=== PATIENT | female | born 1930 | race Caucasian/White ===

== ENCOUNTER 2020-04-21 14:06 | Inpatient (IN) ==
[2020-04-21] MEDS ORDERED: MORPHINE SULFATE 2 MG/ML DISP.SYRIN IV ONE ×2 (14:22→16:29)
[2020-04-21] MEDS ORDERED: ONDANSETRON HCL/PF 2 MG/ML VIAL IV ONE (14:39)
[2020-04-21] MEDS ORDERED: ONDANSETRON HCL/PF 2 MG/ML VIAL ONE (14:40)
[2020-04-21 14:43] LABS: Hematocrit 26.2 % (37.0-47.0); Hemoglobin 8.7 gm/dL (12.5-16.0); Mean Cell Volume 106.5 fl (78-100); Mean Corpuscular Hemoglobin 35.4 pg (27-31); Mean Corpuscular Hgb Conc 33.2 g/dl (32-36); Mean Platelet Volume 9.5 fl (8-12.5); Neutrophil # 2.9 K/mm3 (1.3-6.0); Neutrophil % 67.3 % (42-75.0); Platelet Count 202 K/mm3 (150-450); Red Blood Count 2.46 M/mm3 (4.2-5.4); White Blood Count 4.3 K/mm3 (4.0-10.5)
[2020-04-21 15:00] LABS: Albumin * 3.5 gm/dl (3.4-5.0); Anion Gap 12.6 mmol/L (6.8-13.8); BUN/Creatinine Ratio 18.5 (9.0-21.6); Bilirubin, Total 0.7 mg/dL (0.0-1.1); Ca. Corrected For Albumin 8.7 mg/dL (8.4-10.2); Calcium * 8.6 mg/dL (7.9-10.9); Potassium 4.6 mmol/L (3.4-4.6); Total Protein 6.4 gm/dL (6.2-8.2)
[2020-04-21] MEDS ORDERED: NORMAL SALINE 1,000 ML IV ONE (16:12)
--- NOTE | 2020-04-21 16:22 | ERNOTE ---
Trauma/Assault HPI - Narrative Date of Service: 04/21/20 - General Stated Complaint: fall arm injury Time Seen by Provider: 04/21/20 14:19 Source: patient Exam Limitations: no limitations - Immun/Allergies/Home Medications Immunizations: IMMUNIZATION HX Immunizations Up to Date Yes History of Influenza Vaccine Yes Allergies/Adverse Reactions: Allergies No Known Allergies Allergy (Verified 04/21/20 17:44) - History of Present Illness Narrative: -89-year-old female presents today status post a fall with left wrist and hip pain. She notes she fell in her yard today she, she lives at home by herself. She notes she was brought in by the ambulance. She notes she did not hit her head and had no loss of consciousness. She rates her pain a 10/10. She notes the pain is worse with movement better with rest. She notes she has significant deformity of her wrist upon falling. She denies any use of any blood thinners. Patient is unaware of all of her other chronic medical conditions, she does note that she takes a "water pill". Patient otherwise notes no other acute concerns, no loss of consciousness, no syncope. She denies any other significant pains about her body. She notes she did not hit her head. Review of Systems - Review of Systems Constitutional: Absent: fever, chills EYE: Absent: blurred vision, double vision ENT: Absent: sore throat Respiratory: Absent: shortness of breath, cough Cardiology: Absent: syncope Gastrointestinal/Abdominal: Absent: nausea, vomiting, diarrhea, constipation, abdominal pain Genitourinary: Present: no symptoms reported Musculoskeletal: Present: joint pain Skin: Absent: rash, lesions Neurological: Absent: weakness, numbness, tingling Endocrine: Present: no symptoms reported Hematologic/Lymphatic: Present: no symptoms reported Psych: Present: no symptoms reported All Other Systems: All systems neg except as marked Medical History (Last Reviewed 04/21/20 @ 20:22 by HASMUKH Escamilla) Atrial fibrillation Breast cancer Colon cancer 2014- with resection and use of colostomy bag for 3 months. Surgical History: Surgical History (Last Reviewed 04/21/20 @ 20:22 by HASMUKH Escamilla) S/P triple vessel bypass (Chronic) 2006 following a [place] H/O total mastectomy of right breast Family History: Family History (Last Reviewed 04/21/20 @ 20:22 by HASMUKH Escamilla) Sister Cancer Throat cancer Brother Cancer Father Myocardial infarction Physical Exam - Physical Exam General Appearance: Present: wd/wn, alert, no apparent distress Head Exam: Present: normal inspection, no evidence of injury Eye Exam: Normal inspection: bilateral, PERRL: bilateral, EOMI: bilateral Ears, Nose, Throat: Present: normal ENT inspection Neck: Present: normal inspection, nontender Respiratory: Present: no respiratory distress, normal breath sounds, no accessory muscle use, chest nontender, lungs clear Cardiovascular/Chest: Present: regular rate, rhythm, no murmur, normal peripheral pulses Gastrointestinal/Abdominal: Present: normal bowel sounds, nontender, nondistended, soft Back Exam: Present: normal inspection, normal range of motion Extremity Exam: Present: other - LUE--> if again deformity of the distal radius, diffuse ecchymosis, decreased range of motion diffusely through her hand, sensation intact light touch, capillary refill brisk LLE--> diffuse tenderness to palpation about left hip, distal cap refill brisk, sensation intact light touch, mild shortening external rotation upon presentation, no obvious wounds Neurological Exam: Present: alert, oriented, normal mood/affect, no motor/sensory deficits Skin Exam: Present: normal color, warm/dry Detailed Trauma Exam Best Eye Response ([place]): (4) open spontaneously Best Verbal Response ([place]): (5) oriented Best Motor Response ([place]): (6) obeys commands [place] Total: 15 General Appearance: Present: alert Head Injury: Present: normal inspection, no tenderness on palpate Neurological Exam: Present: alert, oriented x 4, no motor/sensory deficits Neck Exam: Present: non-tender, full range of motion, normal alignment, normal inspection Eye Exam: Normal inspection: bilateral, PERRL: bilateral, EOMI: bilateral ENT Exam: Present: nml ext. inspection Chest/Respiratory Exam: Present: nml inspection, chest non-tender, breath sounds nml Cardiovascular Exam: Present: regular rate, rhythm, no murmur, normal peripheral pulses Abdominal Exam: Present: soft, non-tender, no distention, normal bowel sounds Skin Exam: Present: normal color, warm/dry Exam normal except for the findings below:: Yes - See previous exam - C-Spine cleared by: Neg history & exam Progress - Date and Time Seen: Date and Time: -9-year-old patient presents status post fall outside today. EMS brought the patient she had clear deformity of her left wrist that was splinted. She also had significant left hip pain. She reported no significant head trauma no loss of consciousness no syncope. Further work-up included x-rays that showed left displaced distal radius and ulna as well as left femoral neck fractures. Patient did not go under head CT as she is not on any blood thinners had no loss of conscious had no significant head trauma. She was alert and oriented otherwise. Discussed with patient treatment options including surgical fixation versus conservative measures including cast or nonweightbearing status. At this time she wishes to proceed with surgical intervention. Patient will be admitted with orthopedic surgery consulted. Discussed the case in detail with Dr. Pineda plan to surgically intervene on 04/22/2020 assuming clearance from medical team. Patient expressed understand this treatment plan and will be admitted for continued care and monitoring. - Results and Orders Patient's Lab Results:: I have reviewed the patient's lab results. Results and Orders: Laboratory Tests 04/21/20 04/21/20 14:30 14:30 WBC 4.3 Hgb 8.7 L MCV 106.5 H Creatinine 1.73 H Est GFR (Non-Af Amer) 29 L - Vital Signs Patient's Vital Signs:: I have reviewed the patient's vital signs. Vital Signs: Vital Signs 04/21/20 14:09 04/21/20 14:29 04/21/20 14:43 Temperature 36.2 C 36.2 C Pulse Rate 68 65 68 Respiratory Rate 20 20 Blood Pressure 147/66 165/68 H O2 Sat by Pulse Oximetry 95 97 - X-Ray X-Ray #1 X-Ray: chest Interpretation: Reviewed by me X-ray Comments: INDICATION: fall. COMPARISON STUDY: None. TECHNIQUE: Single PA view of the chest was obtained. FINDINGS: Low lung volumes. Exclusion of the right costophrenic angle from the [id number]. Vascular indistinctness. No consolidation. Cardiomegaly and tortuous thoracic aorta. Median sternotomy. No pleural effusion or pneumothorax. IMPRESSION: Vascular indistinctness may represent interstitial edema. No focal consolidation. Cardiomegaly. Electronically signed by Park Abdul D.O.. Park Abdul DO X-Ray #2 X-Ray: wrist Interpretation: Interp. by me X-ray Comments: Significantly displaced distal radius/ulna fracture, minimal comminution, no significant intra-articular involvement X-Ray #3 X-Ray: hip Interpretation: Interp. by me X-ray Comments: Displaced left femoral neck fracture - Progress/Reassessment Chief Complaint: Fall Progress:: Unchanged Progress Note-Subjective: 04/21/20 16:[address] Pineda from orthopedic surgery recommended admission to medicine for further care and preoperative clearance. Proceed with surgical intervention on 04/22/2020. Then called Dr. Rivero to discuss this case and further treatment he recommended admission she would see the patient this evening for further evaluation and H&P as well as preoperative evaluation. Patient will be admitted at this time with plan to proceed with surgical intervention if no significant complications on 04/22/2020. Plan - Plan Plan: Patient will be admitted with medicine team for further evaluation and possible preoperative clearance, if clearance is obtained will undergo orthopedic surgery on 04/22/2020 for her left distal radius/ulna and femoral neck fractures Departure Clinical Impression: Closed fracture distal radius and ulna Qualifiers: Encounter type: initial encounter Laterality: left Qualified Code(s): S52.502A - Unspecified fracture of the lower end of left radius, initial encounter for closed fracture Fracture of femoral neck, closed Qualifiers: Encounter type: initial encounter Laterality: left Qualified Code(s): S72.002A - Fracture of unspecified part of neck of left femur, initial encounter for closed fracture - Departure Disposition: Still a patient Condition: Stable Critical Care Time - Critical Care Critical Time Spent:: No
[2020-04-21 16:35] LABS: Urine Appearance Clear (CLEAR); Urine Bilirubin Negative (NEGATIVE); Urine Blood Negative /ul (NEGATIVE); Urine Color Yellow; Urine Ketone Negative (NEGATIVE); Urine Protein Negative (NEGATIVE)
[2020-04-21 16:36] LABS: Urine Bacteria None Seen; Urine Nitrite Negative (NEGATIVE); Urine RBC None Seen /hpf (0-5); Urine WBC None Seen /hpf (0-5)
[2020-04-21] MEDS ORDERED: MORPHINE SULFATE 2 MG/ML DISP.SYRIN IV PRN (18:32)
[2020-04-21] MEDS ORDERED: ACETAMINOPHEN 500 MG TABLET PO PRN (19:42)
[2020-04-21] MEDS ORDERED: ONDANSETRON HCL/PF 2 MG/ML VIAL IV PRN (19:45)
--- NOTE | 2020-04-21 20:17 | HP ---
Chief Complaint - Chief Complaint Date of Service: 04/21/20 Time of Service: 19:58 Chief Complaint: I have left hip and left wrist pain from a fall. History of Present Illness: 89-year-old female with past medical history of atrial fibrillation, CAD with three-vessel bypass, and chronic anemia was brought to our ER by EMS after patient sustained a fall that occurred in her home this afternoon. Patient reports while out in her backyard to plant some tomato plants she attempted to turn around to walk back to her house and felt numbness in her left hip which eventually gave out and caused her to fall onto her left side. Patient fell onto her left wrist and her left hip and felt a sudden intense pain. After that she reports being unable to get up from the ground and was there in her backyard for an unknown period of time. Patient started yelling for help but since she lives alone and her neighbors were away it was not until 2 strangers heard her yelling that she was able to get assistance. Patient reports that she is very independent and does all of her activities of daily living including cooking and cleaning. She reports being in her usual state of health before this occurred but admits to having chronic pain and weakness in her hips due to osteoarthritis. Patient was unattended during the admission process and was not very knowledgeable of her past medical history. She was however able to confirm a history of atrial fibrillation that is noted on preoperative EKG. Orthopedics was consulted and after evaluating the patient plans to take her to the OR for repair of her left hip fracture and left distal ulnar/radial fracture in the morning were made. Labs demonstrated hemoglobin of 8.7 which the patient reports is around her baseline, and according to her she regularly gets blood transfusions but she's not sure what causes her chronic anemia. Given the other findings on her labs it is likely that the patient has an anemia of chronic disease or a macrocytic anemia. We were unable to obtain a list of her medications due to the fact that she is not very knowledgeable what she takes and is unaccompanied. The pharmacy that supplies the patient's medications is closed until Wednesday due to the long holiday weekend and her doctor's office is also closed until Wednesday. Therefore we will place the patient on telemetry and continue to monitor her and treat her with analgesics to control her pain and make her as comfortable as possible. She is scheduled for OR in the morning. Medical History (Last Updated 04/21/20 @ 19:41 by Margie Mendez RN) Atrial fibrillation Breast cancer Colon cancer 2014- with resection and use of colostomy bag for 3 months. Surgical History: Surgical History (Last Reviewed 04/21/20 @ 17:42 by Bonnie Ibrahim RN) S/P triple vessel bypass (Acute) 2006 following a [place] H[place] maste[place] of right breast Family History: Family History (Last Updated 04/21/20 @ 17:44 by Bonnie Ibrahim RN) Sister Cancer Throat cancer Brother Cancer Father Myocardial infarction Peds Patient Hx - Developmental: No Pertinent Hx Peds Patient Hx - Medical: No Pertinent Hx Peds Patient Hx - Cardiac/Respiratory: No Pertinent Hx Peds Patient Hx - Surgical: No Surgical History Patient History - Cancer: No Hx of Cancer Review Of Systems (GEN) - Review of Systems Generalized/Overall Review: Present: No Symptoms Reported EENTM: Present: No Symptoms Reported Respiratory: Present: No Symptoms Reported Cardiac: Present: No Symptoms Reported Abdominal: Present: No Symptoms Reported Genitourinary: Present: No Symptoms Reported Musculoskeletal: Present: Joint Pain - Left hip and left wrist pain, Joint Swelling Neurological: Present: No Symptoms Reported Skin: Present: No Symptoms Reported Endocrine: Present: No Symptoms Reported Immunizations: IMMUNIZATION HX Immunizations Up to Date Yes History of Influenza Vaccine Yes Allergies/Adverse Reactions: Allergies Allergy/AdvReac Type Severity Reaction Status Date / Time No Known Allergies Allergy Verified 04/21/20 17:44 Exam - Exam Vital Signs: Vital Signs - Last Taken Temp 36.2 C 04/21/20 17:48 Pulse 91 04/21/20 17:48 Resp 20 04/21/20 17:48 BP 135/68 04/21/20 17:48 Pulse Ox 94 04/21/20 17:48 Constitutional: Present: Alert, Oriented x3, Cooperative, Well developed, Well nourished, No distress, Elderly ENT Exam: Present: normal ENT inspection, hearing grossly normal, pharynx normal, TMs normal Eye Exam: bilateral eye: normal inspection, PERRL, EOMI Neck: Present: non-tender, full range of motion, supple, normal inspection, trachea midline Back Exam: Present: normal inspection, no CVA tenderness, no vertebral tenderness Breasts: Present: Exam deferred Respiratory: Present: chest non-tender, lungs clear, normal breath sounds, no respiratory distress, no accessory muscle use Cardiovascular/Chest: Present: no chest tenderness, no edema, no gallop, no JVD, no murmur, no rub, irregularly irregular Peripheral Pulses: femoral (R): 3+, femoral (L): 3+, dorsalis-pedis (R): 2+, dorsalis-pedis (L): 2+ Abdomen: Present: Normal bowel sounds, soft, nontender, nondistended, no rebound tenderness, no hepatospenomegaly, no masses /Rectal: Present: Exam deferred Extremity: Present: no pedal edema, no calf tenderness, normal capillary refill, other - Externally rotated and shortened left lower extremity, left upper extremity wrapped in bandage. Skin Exam: Present: normal color, warm/dry, no cyanosis Lymphatic: Present: no adenopathy Neurologic: Present: pattern storage clerk II-XII nml as tested, no motor/sensory deficits, alert, normal mood/affect, oriented x 3 Appearance: Present: appropriate appearance, appropriate insight, neat, no memory impairment Eye contact: Present: cooperative, good eye contact, normal speech Thoughts: Present: normal thought pattern, no apparent hallucination Diagnostic Studies: Abnormal Lab Results 04/21/20 04/21/20 04/21/20 Range/Units 14:30 14:30 16:15 RBC 2.46 L (4.2-5.4) M/mm3 Hgb 8.7 L (12.5-16.0) gm/dL Hct 26.2 L (37.0-47.0) % MCV 106.5 H (78-100) fl MCH 35.4 H (27-31) pg RDW 15.0 H (11.5-14.0) % Immature Gran % (Auto) 0.50 H (0.001-0.429) % Lymphocytes % 19.5 L (20-51) % Monocytes % 10.1 H (0.0-9) % Lymphocytes # 0.83 L (1.5-3.5) k/mm3 BUN 32 H (3-23) mg/dL Creatinine 1.73 H (0.4-1.4) mg/dL Est GFR (Non-Af Amer) 29 L (60-130) mL/min Random Glucose 124 H (70-110) mg/dL ALT 13 L (19-67) U/L Urine Urobilinogen 2.0 H (NORMAL) EU/dl Laboratory Results WBC 4.3 K/mm3 (4.0-10.5) 04/21/20 14:30 RBC 2.46 M/mm3 (4.2-5.4) L 04/21/20 14:30 Hgb 8.7 gm/dL (12.5-16.0) L 04/21/20 14:30 Hct 26.2 % (37.0-47.0) L 04/21/20 14:30 MCV 106.5 fl (78-100) H 04/21/20 14:30 MCH 35.4 pg (27-31) H 04/21/20 14:30 MCHC 33.2 g/dl (32-36) 04/21/20 14:30 RDW 15.0 % (11.5-14.0) H 04/21/20 14:30 Plt Count 202 K/mm3 (150-450) 04/21/20 14:30 MPV 9.5 fl (8-12.5) 04/21/20 14:30 Immature Gran % (Auto) 0.50 % (0.001-0.429) H 04/21/20 14:30 Immature Gran # (Auto) 0.02 K/mm3 (0.000-0.0310) 04/21/20 14:30 Neutrophils % 67.3 % (42-75.0) 04/21/20 14:30 Lymphocytes % 19.5 % (20-51) L 04/21/20 14:30 Monocytes % 10.1 % (0.0-9) H 04/21/20 14:30 Eosinophils % 1.9 % (0.0-3.0) 04/21/20 14:30 Basophils % 0.7 % (0.0-1.0) 04/21/20 14:30 Nucleated RBC % 0.0 k/mm3 (0-1) 04/21/20 14:30 Neutrophils # 2.9 K/mm3 (1.3-6.0) 04/21/20 14:30 Lymphocytes # 0.83 k/mm3 (1.5-3.5) L 04/21/20 14:30 Monocytes # 0.4 k/mm3 (0.0-1.0) 04/21/20 14:30 Eosinophils # 0.1 k/mm3 (0.0-0.7) 04/21/20 14:30 Absolute Basophils 0.0 k/mm3 (0.0-0.1) 04/21/20 14:30 Sodium 134 mmol/L (132-142) 04/21/20 14:30 Plasma Sodium 134 mmol/L (130-142) 04/21/20 14:30 Potassium 4.6 mmol/L (3.4-4.6) 04/21/20 14:30 Chloride 101 mmol/L (97-106) 04/21/20 14:30 Carbon Dioxide 25.0 mmol/L (24-32.6) 04/21/20 14:30 Anion Gap 12.6 mmol/L (6.8-13.8) 04/21/20 14:30 BUN 32 mg/dL (3-23) H 04/21/20 14:30 Creatinine 1.73 mg/dL (0.4-1.4) H 04/21/20 14:30 Est GFR (Non-Af Amer) 29 mL/min (60-130) L 04/21/20 14:30 BUN/Creatinine Ratio 18.5 (9.0-21.6) 04/21/20 14:30 Random Glucose 124 mg/dL (70-110) H 04/21/20 14:30 Calcium 8.6 mg/dL (7.9-10.9) 04/21/20 14:30 Calcium Adj for Albumin 8.7 mg/dL (8.4-10.2) 04/21/20 14:30 Total Bilirubin 0.7 mg/dL (0.0-1.1) 04/21/20 14:30 AST 17 U/L (0-48) 04/21/20 14:30 ALT 13 U/L (19-67) L 04/21/20 14:30 Alkaline Phosphatase 62 U/L (50-170) 04/21/20 14:30 Total Protein 6.4 gm/dL (6.2-8.2) 04/21/20 14:30 Albumin 3.5 gm/dl (3.4-5.0) 04/21/20 14:30 Urine Color Yellow 04/21/20 16:15 Urine Appearance Clear (CLEAR) 04/21/20 16:15 Urine pH 7.0 pH (5.0-7.0) 04/21/20 16:15 Ur Specific [place] 1.020 SP.GR. (1.005-1.010) 04/21/20 16:15 Urine Protein Negative mg/dL (NEGATIVE) 04/21/20 16:15 Urine Glucose (UA) Negative mg/dL (NEGATIVE) 04/21/20 16:15 Urine Ketones Negative mg/dL (NEGATIVE) 04/21/20 16:15 Urine Blood Negative /ul (NEGATIVE) 04/21/20 16:15 Urine Nitrate Negative (NEGATIVE) 04/21/20 16:15 Urine Bilirubin Negative mg/dl (NEGATIVE) 04/21/20 16:15 Urine Urobilinogen 2.0 EU/dl (NORMAL) H 04/21/20 16:15 Ur Leukocyte Esterase Negative /ul (NEGATIVE) 04/21/20 16:15 Urine RBC None seen /hpf (0-5) 04/21/20 16:15 Urine WBC None seen /hpf (0-5) 04/21/20 16:15 Ur Epithelial Cells 0-5 /hpf (0-5) 04/21/20 16:15 Urine Bacteria None seen (NONE) 04/21/20 16:15 Urine Culture Comments No culture indicated 04/21/20 16:15 Blood Type A Positive 04/21/20 14:30 Antibody Screen Negative 04/21/20 14:30 Assessment/Plan - Narrative Narrative: Patient was evaluated and medical chart was reviewed and decision to admit for a diagnosis of left femoral neck fracture and left distal ulnar/radial fracture was made. She is scheduled for the OR tomorrow morning for repair of her fractures by the orthopedic surgeon. In the meantime we will continue to control her pain and any other associated symptoms. She maintained stable vitals at the moment and besides mild nausea due to the opioids she denies any other symptoms. Efforts will be made to contact the patient's family members in order to secure a list of her routine medications. - Assessment/Plan (1) Fracture of femoral neck, left Problem: Acute (2) Closed fracture distal radius and ulna Problem: Acute Qualifiers: Encounter type: initial encounter Laterality: left Qualified Code(s): S52.502A - Unspecified fracture of the lower end of left radius, initial encounter for closed fracture; S52.602A - Unspecified fracture of lower end of left ulna, initial encounter for closed fracture (3) S/P triple vessel bypass Problem: Chronic (4) Chronic anemia Problem: Chronic (5) Macrocytic anemia Problem: Chronic (6) Atrial fibrillation Problem: Chronic
[2020-04-21] MEDS ORDERED: MORPHINE SULFATE 2 MG/ML DISP.SYRIN IV STA (20:19)
[2020-04-21 20:38] LABS: Prothrombin Time (Patient) 12.2 Seconds (9.1-10.7)
[2020-04-21] MEDS: PANTOPRAZOLE SODIUM 40 MG in NORMAL SALINE 100 ML IV SCH (20:43)
[2020-04-21 20:44] LABS: INR 1.24 INR (0.92-1.08); Partial Thrombolplastin Time 29.2 Seconds (24-32)
[2020-04-21] MEDS: MORPHINE SULFATE 4 MG/ML SYRG IV PRN (21:34)
--- NOTE | 2020-04-21 22:06 | CONS ---
- Reason for consultation (1) Closed fracture distal radius and ulna Date of Service: 04/21/20 (2) Fracture of femoral neck, left Date of Service: 04/21/20 HPI - General Date of Service: 04/21/20 Narrative: 89-year-old female presented to the ER today status post a fall outside. She was brought to the ER by ambulance with significant left wrist and hip pain. She noted her pain as constant about those 2 joints, she noted no loss of consciousness, no significant head injury, no significant traumas outside this. She notes no other previous surgeries on these regions. Patient is a poor histo baudilio and other further medical history is difficult to obtain, appears to have previous cancer history and possible resections of her colon and breast. She also had significant cardiac history with a triple bypass at one point. Patient notes she is not on any significant blood thinners that she is aware of. Patient notes her pain is worse with movement better with rest. She is otherwise alert and oriented. Source: patient Exam Limitations: no limitations - History of Present Illness Allergies/Adverse Reactions: Allergies No Known Allergies Allergy (Verified 04/21/20 17:44) Medications - Medications Current Medications: Current Medications Sodium Chloride (Sodium Chloride 0.9%) 1,000 mls @ 100 mls/hr IV .Q10H ONE Stop: 04/22/20 02:11 Last Admin: 04/21/20 16:24 Dose: 100 mls/hr Documented by: Pantoprazole Sodium 40 mg/ (Sodium Chloride) 100 mls @ 400 mls/hr IV Q24H JOSTIN Stop: 05/21/20 19:46 Last Infusion: 04/21/20 20:58 Dose: Infused Documented by: Morphine Sulfate (Morphine Sulfate) 3 mg IV Q2H PRN PRN Reason: Severe Pain (pain scale 7-10) Stop: 05/21/20 20:23 Last Admin: 04/21/20 21:34 Dose: 3 mg Documented by: Physical Examination - Exam Vital Signs: Vital Signs - Last Taken Temp 36.4 C 04/21/20 20:18 Pulse 90 04/21/20 20:18 Resp 18 04/21/20 20:18 BP 143/71 04/21/20 20:18 Pulse Ox 93 04/21/20 20:18 O2 Oxygen Delivery Method Room Air Constitutional: Present: Alert, Cooperative, Mild distress Respiratory: Present: no respiratory distress - LUE--> sensation intact light touch, significant deformity, diffuse ecchymosis, no obvious wounds, tenderness to palpation about distal radius and ulna LLE--> sensation intact light touch, mild deformity with shortening and external rotation, distal capillary refill brisk, no obvious wounds, significant diffuse tenderness of hip Appearance: Present: appropriate appearance Eye contact: Present: cooperative Thoughts: Present: normal thought pattern - Results and Findings: Lab/Microbiology results last 24 hrs: Abnormal/Pending Laboratory Last 24 HRS 04/21/20 04/21/20 04/21/20 16:15 14:30 14:30 RBC Hgb Hct MCV MCH RDW Immature Gran % (Auto) Lymphocytes % Monocytes % Lymphocytes # PT 12.2 H INR (Anticoag Therapy) 1.24 H BUN 32 H Creatinine 1.73 H Est GFR (Non-Af Amer) 29 L Random Glucose 124 H ALT 13 L Urine Urobilinogen 2.0 H 04/21/20 14:30 RBC 2.46 L Hgb 8.7 L Hct 26.2 L MCV 106.5 H MCH 35.4 H RDW 15.0 H Immature Gran % (Auto) 0.50 H Lymphocytes % 19.5 L Monocytes % 10.1 H Lymphocytes # 0.83 L PT INR (Anticoag Therapy) BUN Creatinine Est GFR (Non-Af Amer) Random Glucose ALT Urine Urobilinogen - Assessments/Findings (1) Closed fracture distal radius and ulna Problem: Acute Qualifiers: Encounter type: initial encounter Laterality: left Qualified Code(s): S52.502A - Unspecified fracture of the lower end of left radius, initial encounter for closed fracture; S52.602A - Unspecified fracture of lower end of left ulna, initial encounter for closed fracture (2) Fracture of femoral neck, left Problem: Acute Plan - Plan Plan: -89 y/o female status post fall with a left distal radius/ulna fracture and left femoral neck fracture. Dr. Fletcher recommends further treatment with surgical intervention for left wrist and femur fractures. If patient is medically stable recommend proceeding with surgical intervention on 04/22/2020. Patient wishes to proceed with the surgical options, consent was obtained and all questions were answered. Discussed risk versus benefits of both surgeries including infection, bleeding, continued pain, malunion versus nonunion fracture anteriorly, hardware failure, anesthesia risk, cardiac and stroke risk, inherent risk of surgery. Patient expressed understanding and still wishes to proceed with surgical intervention. She will be evaluated by the medical team for clearance prior to proceeding with surgery. We will follow-up with patient tomorrow preoperatively.
[2020-04-22] MEDS: MORPHINE SULFATE 4 MG/ML SYRG IV PRN ×3 (00:59→06:53)
[2020-04-22] MEDS: NORMAL SALINE 1,000 ML IV ONE ×2 (02:43→09:30)
[2020-04-22] MEDS ORDERED: ROPIVACAINE HCL/PF 100 MG, EPINEPHrine 0.2 MG, KETOROLAC TROMETHAMINE 30 MG in NORMAL S... IJ PRN (06:00)
[2020-04-22] MEDS ORDERED: ceFAZolin SODIUM 1 GM VIAL IV PRN (06:00)
[2020-04-22] MEDS ORDERED: TRANEXAMIC ACID 1,000 MG in NORMAL SALINE 100 ML IV PRN (06:00)
[2020-04-22] MEDS ORDERED: VANCOMYCIN HCL 1 GM VIAL ONE (06:27)
--- NOTE | 2020-04-22 08:54 | PN ---
Subjective - Date and Time Seen Date: 04/22/20 Time: 08:51 Subjective Narrative: Patient reports no acute events, she does note she had mild to moderate pain throughout the night worse movement better with rest. She otherwise had an uneventful night. States she is ready to proceed with surgery today. Objective - Vitals Vitals: Last Vital Signs Temp 36.8 C 04/22/20 07:00 Pulse 79 04/22/20 07:00 Resp 20 04/22/20 07:00 BP 120/54 04/22/20 07:00 Pulse Ox 98 04/22/20 07:00 - Abnormal Lab Findings Abnormal Lab Findings: Abnormal Lab Results 04/21/20 04/21/20 04/21/20 Range/Units 14:30 14:30 14:30 RBC 2.46 L (4.2-5.4) M/mm3 Hgb 8.7 L (12.5-16.0) gm/dL Hct 26.2 L (37.0-47.0) % MCV 106.5 H (78-100) fl MCH 35.4 H (27-31) pg RDW 15.0 H (11.5-14.0) % Immature Gran % (Auto) 0.50 H (0.001-0.429) % Lymphocytes % 19.5 L (20-51) % Monocytes % 10.1 H (0.0-9) % Lymphocytes # 0.83 L (1.5-3.5) k/mm3 PT 12.2 H (9.1-10.7) Seconds INR (Anticoag Therapy) 1.24 H (0.92-1.08) INR BUN 32 H (3-23) mg/dL Creatinine 1.73 H (0.4-1.4) mg/dL Est GFR (Non-Af Amer) 29 L (60-130) mL/min Random Glucose 124 H (70-110) mg/dL ALT 13 L (19-67) U/L Urine Urobilinogen (NORMAL) EU/dl 04/21/20 Range/Units 16:15 RBC (4.2-5.4) M/mm3 Hgb (12.5-16.0) gm/dL Hct (37.0-47.0) % MCV (78-100) fl MCH (27-31) pg RDW (11.5-14.0) % Immature Gran % (Auto) (0.001-0.429) % Lymphocytes % (20-51) % Monocytes % (0.0-9) % Lymphocytes # (1.5-3.5) k/mm3 PT (9.1-10.7) Seconds INR (Anticoag Therapy) (0.92-1.08) INR BUN (3-23) mg/dL Creatinine (0.4-1.4) mg/dL Est GFR (Non-Af Amer) (60-130) mL/min Random Glucose (70-110) mg/dL ALT (19-67) U/L Urine Urobilinogen 2.0 H (NORMAL) EU/dl - Exam Constitutional: Present: Alert, Cooperative, No distress Respiratory: Present: no respiratory distress Extremity: Present: other - LUE--> sensation intact light touch, sugar tong splint in place, 4+/5 compensation and hris analyst strength, this capillary fill brisk LLE--> diffuse tenderness to hip, no obvious wounds, mild external rotation and shortening, sensation tact light touch, distal capillary refill but Skin Exam: Present: normal color Appearance: Present: appropriate appearance Eye contact: Present: cooperative Thoughts: Present: normal thought pattern Cauti Physician Documentation - Urinary Catheter Management Urethral (S[place]ruz) Date of Insertion: 04/21/20 Time of Insertion: 16:30 Assessment/Plan Plan Narrative: -Patient was marked and signed, preoperative evaluation completed. Patient will proceed with surgical intervention on 04/22/2020 for her left wrist and hip. Patient will be followed postoperatively in the hospital and will continue with further care. - Problems/Diagnosis (1) Closed fracture distal radius and ulna Problem: Acute Qualifiers: Encounter type: initial encounter Laterality: left Qualified Code(s): S52.502A - Unspecified fracture of the lower end of left radius, initial encounter for closed fracture; S52.602A - Unspecified fracture of lower end of left ulna, initial encounter for closed fracture (2) Fracture of femoral neck, left Problem: Acute
[2020-04-22] MEDS ORDERED: ONDANSETRON HCL/PF 2 MG/ML VIAL ONE (09:09)
[2020-04-22] MEDS ORDERED: fentaNYL CITRATE/PF 50 MCG/ML AMPUL ONE (09:09)
[2020-04-22] MEDS ORDERED: ROCURONIUM BROMIDE 10 MG/ML VIAL ONE (09:09)
[2020-04-22] MEDS ORDERED: LIDOCAINE HCL 20 ML VIAL ONE (09:09)
[2020-04-22] MEDS ORDERED: PROPOFOL VIAL IV ONE (09:09)
[2020-04-22] MEDS ORDERED: SUCCINYLCHOLINE CHLORIDE 20 MG/ML VIAL ONE (09:10)
[2020-04-22] MEDS ORDERED: VANCOMYCIN HCL 1 GM VIAL TP ONE (09:30)
[2020-04-22] MEDS ORDERED: BUPIVACAINE HCL/EPINEPHRINE/PF 30 ML VIAL IJ ONE (09:35)
[2020-04-22] MEDS ORDERED: BUPIVACAINE HCL 50 ML VIAL IJ ONE ×2 (09:35→11:35)
[2020-04-22] MEDS ORDERED: diphenhydrAMINE HCL 50 MG/ML VIAL IV PRN (12:25)
[2020-04-22] MEDS ORDERED: MORPHINE SULFATE 2 MG/ML DISP.SYRIN IV PRN (12:25)
[2020-04-22] MEDS ORDERED: NORMAL SALINE 1,000 ML IV PRN (12:25)
[2020-04-22] MEDS ORDERED: HYDROcodone/ACETAMINOPHEN 1 EACH TABLET PO PRN (12:25)
[2020-04-22] MEDS ORDERED: MAG HYDROX/ALUMINUM HYD/SIMETH 30 ML UDC PO PRN (12:25)
--- NOTE | 2020-04-22 12:41 | PN ---
Subjective - Date and Time Seen Date: 04/22/20 Time: 12:35 Subjective Narrative: I have left hip pain Objective Objective Narrative: 89-year-old female admitted for left femoral neck and left wrist fractures was taken taken to the OR by Dr. Awad for repair of her left femoral neck fracture. There were no adverse events besides pain from the fractures reported by nursing staff, the patient maintained adequate vitals throughout the night. We will follow-up with her after the procedure. - Review of Systems Generalized/Overall Review: Reports: No Symptoms Reported EENTM: Reports: No Symptoms Reported Respiratory: Reports: No Symptoms Reported Cardiac: Reports: No Symptoms Reported Abdominal: Reports: No Symptoms Reported Genitourinary Symptoms: Reports: No Symptoms Reported Musculoskeletal Complaints: Reports: Joint Pain - Left hip and left wrist pain, Joint Swelling Neurological: Reports: No Symptoms Reported Skin: Reports: No Symptoms Reported Endocrine: Reports: No Symptoms Reported - Vitals Vitals: Last Vital Signs Temp 36.8 C 04/22/20 07:00 Pulse 79 04/22/20 07:00 Resp 20 04/22/20 07:00 BP 120/54 04/22/20 07:00 Pulse Ox 98 04/22/20 07:00 - Abnormal Lab Findings Abnormal Lab Findings: Abnormal Lab Results 04/21/20 04/21/20 04/21/20 Range/Units 14:30 14:30 14:30 RBC 2.46 L (4.2-5.4) M/mm3 Hgb 8.7 L (12.5-16.0) gm/dL Hct 26.2 L (37.0-47.0) % MCV 106.5 H (78-100) fl MCH 35.4 H (27-31) pg RDW 15.0 H (11.5-14.0) % Immature Gran % (Auto) 0.50 H (0.001-0.429) % Lymphocytes % 19.5 L (20-51) % Monocytes % 10.1 H (0.0-9) % Lymphocytes # 0.83 L (1.5-3.5) k/mm3 PT 12.2 H (9.1-10.7) Seconds INR (Anticoag Therapy) 1.24 H (0.92-1.08) INR BUN 32 H (3-23) mg/dL Creatinine 1.73 H (0.4-1.4) mg/dL Est GFR (Non-Af Amer) 29 L (60-130) mL/min Random Glucose 124 H (70-110) mg/dL ALT 13 L (19-67) U/L Urine Urobilinogen (NORMAL) EU/dl 04/21/20 Range/Units 16:15 RBC (4.2-5.4) M/mm3 Hgb (12.5-16.0) gm/dL Hct (37.0-47.0) % MCV (78-100) fl MCH (27-31) pg RDW (11.5-14.0) % Immature Gran % (Auto) (0.001-0.429) % Lymphocytes % (20-51) % Monocytes % (0.0-9) % Lymphocytes # (1.5-3.5) k/mm3 PT (9.1-10.7) Seconds INR (Anticoag Therapy) (0.92-1.08) INR BUN (3-23) mg/dL Creatinine (0.4-1.4) mg/dL Est GFR (Non-Af Amer) (60-130) mL/min Random Glucose (70-110) mg/dL ALT (19-67) U/L Urine Urobilinogen 2.0 H (NORMAL) EU/dl - Exam Exam Narrative: Patient is currently in the OR undergoing repair of her left femoral neck fracture, she was not present for physical exam during rounds this morning. Cauti Physician Documentation - Urinary Catheter Management Urethral ([place]ruz) Date of Insertion: 04/21/20 Time of Insertion: 16:30 Assessment/Plan - Problems/Diagnosis (1) Fracture of femoral neck, left Problem: Acute (2) Closed fracture distal radius and ulna Problem: Acute Qualifiers: Encounter type: initial encounter Laterality: left Qualified Code(s): S52.502A - Unspecified fracture of the lower end of left radius, initial encounter for closed fracture; S52.602A - Unspecified fracture of lower end of left ulna, initial encounter for closed fracture (3) S/P triple vessel bypass Problem: Chronic (4) Chronic anemia Problem: Chronic (5) Macrocytic anemia Problem: Chronic (6) Atrial fibrillation Problem: Chronic
--- NOTE | 2020-04-22 12:42 | OR ---
Operative Report - Dictated Report Narrative: Date: 04/22/2020 Preoperative diagnosis: Displaced left femoral neck fracture, displaced left extra-articular distal radius fracture Postoperative diagnosis: Displaced left femoral neck fracture, displaced left extra-articular distal radius fracture Procedure: 1. Left hip cemented hemiarthroplasty 2. Open reduction internal fixation of left extra-articular distal radius fracture, 2 fragments. 3. Intraoperative interpretation of x-rays. Surgeon: Krish Pineda M.D. Typing Pool Supervisor: Esequiel Kruse PA-C provided a set of essential, skilled, educated hands that assisted in positioning, transfer, retraction, manipulation, irrigation, closure of wounds, and placement of dressings all of which could not be provided by the available surgical crew. Anesthesia: General plus local Complications: None Specimens: Femoral head Estimated blood loss: 250 Retained implants: Depuy Corail size 12 standard uncemented femoral stem. Size 47 millimeter ouside diameter self-centering bipolar head with + 1.5 millimeter cobalt chromium 28 mm femoral head, [employer] 2.0 mm left standard distal radial locking plate with associated screws Indications: Kennedy is a 89-year-old female who lives independently and fell from standing height at home. She was evaluated in the emergency department where work-up revealed a displaced left femoral neck fracture as well as a displaced left extra-articular distal radius fracture. She was admitted to the family medicine service and orthopedics was consulted for management of her injuries. She was otherwise medically stable at the time of admission. The risks and benefits were discussed with the patient as well as any power of patent prosecution attorney. Patient wished to proceed with surgical treatment. The risks, benefits, and alternatives discussed were , blood clots, bleeding, infection, nerve/tendon blood vessel/ injury, malposition of components, dislocation and/or instability of joint, intraoperative fracture, postoperative limited range of motion, persistent pain, failure of components, need for additional procedures, malunion/nonunion of the wrist, wrist stiffness, postoperative arthrosis, delayed tendon rupture of the flexor pollicis longus, and risks with anesthesia. Patient wished to proceed. Consent was obtained after answering all questions. Procedure: After marking the correct extremity on the floor, the patient was taken to the operating room. A timeout was performed. IV antibiotics consisting of 1 g of Ancef were administered prior to the procedure. A general anesthetic was induced by anesthesia. The patient was then transitioned to a lateral position on a well-padded pegboard. And an axillary roll was placed. The head was in neutral position. The non-operative down leg was well-padded with SCD and MERRICK hose in place. The arms were supported and padded to protect from any undue pressure on the bony prominences and nerves. Well-padded anterior and posterior pelvic and chest posts were secured in order to maintain a stable position of the pelvis. This was placed so that the pelvis was perpe ndicular to the floor. The body was in line with the pelvis. Once it was felt that we had protected all the bony prominences and the patient was well secured with a safety belt as well, the leg was pre-scrubbed with alcohol, prepped and draped in a standard sterile fashion. A standard anterior lateral hip incision was marked out over the greater trochanter. Ioban drapes were then placed. The skin incision was then made. Sharp dissection with a scalpel utilizing cautery for hemostasis was carried out down to the gluteus and iliotibial band fascia. This was split in line with the skin incision. The greater trochanter bursa was excised. The anterior and posterior margins of the abductor tendon were identified. The anterior 1/3 of the tendon was tagged and reflected off the greater trochanter leaving a sleeve of tendon for repair at the completion of the case. This exposed the underlying hip joint capsule. An inverted T-type capsulotomy was made extending this up to the brim of the acetabulum. We encountered a hematoma at this point confirming an acute fracture as well as noted displacement of the femoral neck fracture. Using Juana retractors to assist with elevation of the soft tissues off the anterior, superior, and inferior aspects of the femoral neck, the hip was then placed in a figure 4 position and the femoral neck cleanup cut was then made. With the leg in an externally rotated and adducted position, the cutting flag was utilized in order to bud for a low femoral neck cut approximately 5 to 7 mm above the level of the lesser trochanter. This was done while protecting the surrounding soft tissues with Juana retractors. The femoral head was then removed and sized for guidance on the size of the bipolar head. It was noted that there was no significant loss of articular cartilage on both the femoral head and weightbearing portions of the acetabulum. We then returned the leg to the table and turned our attention to the acetabulum. While protecting the surrounding soft tissues, the labrum and remaining tissue in the fovea were excised using a scalpel and cautery. This was then protected with a sponge while we returned our attention to the femur. With the leg in a figure 4 position utilizing Juana retractors for soft tissue protection, a box cutting osteotome, followed by Charnley awl, followed by serial broaches were utilized in order to prepare the femur. It was found that a size 12 broach gave good axial and rotational stability. The proximal femur was visualized to ensure that there were no signs of fracture. The trial implant was removed. The stem was then placed in the appropriate version compared to her lower elwha anatomy and impacted into place. The stem was stable and there were no signs of fracture. A series of heads were trialed. It was found that a +1.5 mm femoral head gave good overall stability. There was minimal longitudinal instability. With the leg in the position of sleep the femoral head was well covered. Hip range of motion was able to reach full extension and external rotation to greater than 75 degrees prior to impingement along the posterior acetabulum. The hip was able to be flexed to greater than 90 degrees with internal rotation greater than 60 degrees prior to anterior impingement. The limb lengths were near equal based on comparison to the contralateral side. Hip was then dislocated and the trial head was removed. The final femoral bipolar head was then impacted in the place. The hip was then reduced and seated completely. The joint was then copiously irrigated with normal saline. The capsule was repaired with interrupted #1 Vicryl. A periarticular joint injection was then placed in the hip joint capsule as well as the abductor musculature and subcutaneous tissue. The abductor tendon was repaired to the greater trochanter utilizing #5 Ethibond through bone tunnels. This was oversewn with #1 Vicryl. The fascia was closed with running barbed #1 PDS suture. The wounds were thoroughly irrigated as we closed in layers. The deep fat layers were closed with running barbed 0 PDS and the dermis was approximated with interrupted 3-0 Vicryl. The skin was closed with jaun. All sponge, needle, blade, and instrument counts were correct prior to closing the wounds. Sterile dressings consisting of Xeroform, 4 x 4's, ABD, and tape were applied. At this point, we turned our attention to fixing the patient's distal radius. All hip drapes were taken down and the patient was transferred to a supine position on the operating table with all bony prominences well-padded. An armboard was attached to the left side of the bed. The patient's splint was removed and her wrist and hand were pre-scrubbed with chlorhexidine. A well- padded nonsterile tourniquet was placed around the operative upper arm. The left upper extremity was then prepped and draped in usual sterile fashion. After exsanguinating the extremity and inflating the tourniquet to 225 mmHg, a longitudinal incision was made over the flexor carpi radialis. This was sharply dissected down through the skin to the tendon sheath. This was incised in line with the tendon. The tendon was mobilized radially and the deep fascia was incised. The flexor pollicis longus was mobilized ulnarly exposing the pronator quadratus. Pronator quadratus was elevated off the radial aspect of the distal radius exposing the fracture. The fracture was noted to be oblique running from the distal radial aspect of the distal radial metaphysis down to the proximal ulnar border of the distal radial metaphysis. There was no comminution volarly and only mild comminution dorsally on C arm. Using mini C-arm, the fracture was reduced and preliminarily pinned in the place through the radial styloid. Once it was felt that we adequately preliminarily stabilized the fracture, the plate was pinned in the place. This was visualized on AP and lateral views to be centered over the distal radius as well as not excessively distal. Once it was felt that the plate was in the correct position a series of distal locking and proximal non-locking screws were placed. Mini C-arm was utilized in order to confirm the length and placement of the screws. Once the wrist was stabilized, final images were obtained to ensure that the screws were not prominent dorsally nor into the joint space. The distal radial ulnar joint was then stressed in supination and pronation and neutral, and it was noted to be stable. It was felt that the fracture was adequately stabilized and the wounds were then thoroughly irrigated. The pronator quadratus was repaired over the plate using 4-0 Vicryl. The wounds were again thoroughly irrigated and tourniquet was deflated. Hemostasis was obtained and there was no excessive bleeding. Subcutaneous tissue was closed with 4-0 Vicryl and the skin with 4-0 nylon. Sterile dressings consisting of Xeroform, 4 x 4, soft roll, and a well-padded dorsal plaster short arm splint was applied. All sponge, sharp, and instrument counts were correct prior to closing the wounds. The patient was awoken and recovered in the operating room due to COVID restrictions. Postoperative condition: The plan is to return to the medical/surgical inpatient floor postoperatively. Postoperatively 24 hours of IV antibiotics, pain control, physical therapy, occupational therapy, and medical comanagement will be utilized. Patient will be weightbearing as tolerated with anterior hip precautions. Postoperative films will be obtained in the recovery room.
[2020-04-22] MEDS: POLYVINYL ALCOHOL 150 DROP BTL LEFTEYE PRN ×3 (15:01→19:27)
--- NOTE | 2020-04-22 15:33 | ANES ---
Anesthesia Pre Procedure Eval Vitals/Labs: Last Vital Signs Temp 35.8 C L 04/22/20 14:13 Pulse 78 04/22/20 14:58 Resp 16 04/22/20 14:58 BP 149/68 04/22/20 14:58 Pulse Ox 99 04/22/20 14:58 HOME MEDICATIONS Amiodarone HCl 200 mg PO DAILY 04/22/20 [Last Taken Unknown] Anastrozole [Arimidex] 1 mg PO DAILY 04/22/20 [Last Taken Unknown] Carvedilol [Coreg] 12.5 mg PO BID 04/22/20 [Last Taken Unknown] Folic Acid 2 mg PO DAILY 04/22/20 [Last Taken Unknown] Furosemide [Lasix] 80 mg PO BID PRN 04/22/20 [Last Taken Unknown] Potassium Chloride [K-Tab ER] 10 meq PO DAILY 04/22/20 [Last Taken Unknown] Allergies/Adverse Reactions: Allergies Allergy/AdvReac Type Severity Reaction Status Date / Time No Known Allergies Allergy Verified 04/21/20 17:44 - Planned Procedure Planned Procedure: left distal radius/ulna fx left femoral neck fx Medication List Reviewed:: Yes Allergies Verified: Yes Medical History (Last Reviewed 04/22/20 @ 15:32 by Darío Clemons CRNA) Atrial fibrillation Breast cancer Colon cancer 2014- with resection and use of colostomy bag for 3 months. Surgical History (Last Reviewed 04/22/20 @ 15:32 by Darío Clemons CRNA) S/P triple vessel bypass (Chronic) [address] H/O total mastectomy of right breast Family History (Last Reviewed 04/22/20 @ 15:32 by Darío Clemons CRNA) Sister Cancer Throat cancer Brother Cancer Father Myocardial infarction - Family Anesthesia History Family History:: no untoward family reactions to anesthesia - Airway/Neck/Teeth Teeth Condition: poor condition Denture Type: Full lower Neck Exam: full range of motion Mallampatti Score: 2 Thyromental (T-M) distance: > 6 cm Mandibulo Hyoid distance: > 3 cm - Respiratory Respiratory Physical: lungs clear Smoking Status: Never smoker Sleep Apnea currently treated: No Sleep Apnea by current assessment: No - Cardiovascular Cardiac History: CAD, hypertension Tolerate Activity: Poor Heart Sounds: S1 & S2, Regular, Murmur - Gastrointestinal NPO since: MN - Anesthesia Assessment and Plan ASA Class: PS, III Anesthesia Type Plan: General ET Planned difficult intubation/equipment available: No
--- NOTE | 2020-04-22 15:34 | ANES ---
Post Anesthesia Discharge - Transfer of Care Transfer of Care handoff given to nurse: Yes - Discharge from PACU Discharge from PACU when meets criteria: Yes
--- NOTE | 2020-04-22 15:34 | ANES ---
Post Anesthesia Assessment - Vital Signs Vitals: Last Vital Signs Temp 35.8 C L 04/22/20 14:13 Pulse 78 04/22/20 14:58 Resp 16 04/22/20 14:58 BP 149/68 04/22/20 14:58 Pulse Ox 99 04/22/20 14:58 Airway Patency: Normal - Mental Status Level Of Consciousness: Awake - Pain Level Pain Score: 3 - N/V Assessment Nausea/Vomiting Presence: None Dehydration:: No
[2020-04-22] MEDS: ceFAZolin SODIUM 1 GM in DEXTROSE 5 % IN WATER 100 ML IV SCH ×2 (17:05)
[2020-04-22] MEDS: HYDROcodone/ACETAMINOPHEN 1 EACH TABLET PO PRN (17:40)
[2020-04-22] MEDS: PANTOPRAZOLE SODIUM 40 MG in NORMAL SALINE 100 ML IV SCH (19:26)
[2020-04-22] MEDS: SENNOSIDES/DOCUSATE SODIUM 1 TAB TABLET PO SCH (20:40)
[2020-04-23] MEDS: ceFAZolin SODIUM 1 GM in DEXTROSE 5 % IN WATER 100 ML IV SCH ×4 (01:55→10:35)
[2020-04-23] MEDS: HYDROcodone/ACETAMINOPHEN 1 EACH TABLET PO PRN ×2 (04:53→12:54)
[2020-04-23 06:42] LABS: Anion Gap 11.4 mmol/L (6.8-13.8); BUN/Creatinine Ratio 16.1 (9.0-21.6); Calcium * 7.6 mg/dL (7.9-10.9); Carbon Dioxide 23.3 mmol/L (24-32.6); Potassium 4.7 mmol/L (3.4-4.6)
[2020-04-23 06:45] LABS: Mean Cell Volume 110.7 fl (78-100); Mean Corpuscular Hemoglobin 36.1 pg (27-31); Mean Corpuscular Hgb Conc 32.6 g/dl (32-36); Mean Platelet Volume 10.1 fl (8-12.5); Platelet Count 152 K/mm3 (150-450); Red Blood Count 2.05 M/mm3 (4.2-5.4); Red Cell Distribution Width 15.4 % (11.5-14.0); White Blood Count 5.8 K/mm3 (4.0-10.5)
[2020-04-23 07:04] LABS: Hematocrit 22.7 % (37.0-47.0); Hemoglobin 7.4 gm/dL (12.5-16.0)
--- NOTE | 2020-04-23 08:50 | PN ---
Subjective - Date and Time Seen Date: 04/23/20 Time: 08:39 Subjective Narrative: I feel comfortable, no pain with the meds. Objective Objective Narrative: 89-year-old female status post repair of left femoral neck fracture and left supracondylar fracture resulted from a fall in her home was evaluated at bedside was found to be afebrile in no acute distress. Patient tolerated the procedure to repair her fractures without any issues, currently she reports feeling comfortable and denies having any pain. She is in agreement that once discharge she will go to rehab facility for proper rehabilitation while she heals. This morning's lab demonstrates a drop in hemoglobin most likely secondary to her surgery will continue to watch this daily. During the postop period, the patient also had an episode of fever for which she administered acetaminophen. We will also monitor this. For now she maintained stable vitals and appears to be comfortable. - Review of Systems Generalized/Overall Review: Reports: Fever EENTM: Reports: No Symptoms Reported Respiratory: Reports: No Symptoms Reported Cardiac: Reports: No Symptoms Reported Abdominal: Reports: No Symptoms Reported Genitourinary Symptoms: Reports: No Symptoms Reported Musculoskeletal Complaints: Reports: Other - Mild left wrist discomfort Neurological: Reports: No Symptoms Reported Skin: Reports: No Symptoms Reported Endocrine: Reports: No Symptoms Reported - Vitals Vitals: Last Vital Signs Temp 37.8 C 04/23/20 08:17 Pulse 106 H 04/23/20 06:17 Resp 16 04/23/20 06:17 BP 118/65 04/23/20 06:17 Pulse Ox 94 04/23/20 06:17 - Abnormal Lab Findings Abnormal Lab Findings: Abnormal Lab Results 04/23/20 04/23/20 Range/Units 06:30 06:30 RBC 2.05 L (4.2-5.4) M/mm3 Hgb 7.4 L* (12.5-16.0) gm/dL Hct 22.7 L* (37.0-47.0) % MCV 110.7 H (78-100) fl MCH 36.1 H (27-31) pg RDW 15.4 H (11.5-14.0) % Potassium 4.7 H (3.4-4.6) mmol/L Carbon Dioxide 23.3 L (24-32.6) mmol/L BUN 25 H (3-23) mg/dL Creatinine 1.55 H (0.4-1.4) mg/dL Est GFR (Non-Af Amer) 33 L (60-130) mL/min Random Glucose 131 H (70-110) mg/dL Calcium 7.6 L (7.9-10.9) mg/dL - Exam Constitutional: Present: Alert, Oriented x3, Cooperative, Well developed, Well nourished, No distress, Elderly ENT Exam: Present: normal ENT inspection, hearing grossly normal, pharynx normal, TMs normal Neck: Present: non-tender, full range of motion, supple, normal inspection, trachea midline Breasts: Present: Exam deferred Respiratory: Present: chest non-tender, lungs clear, normal breath sounds, no respiratory distress, no accessory muscle use Cardiovascular/Chest: Present: no chest tenderness, no gallop, no JVD, no murmur, irregularly irregular Abdomen: Present: Normal bowel sounds, soft, nontender, nondistended, no rebound tenderness, no hepatospenomegaly, no masses /Rectal: Present: Exam deferred Extremity: Present: no pedal edema, no calf tenderness, normal capillary refill, other - Left lateral hip region covered with dry clean bandage, there are no signs of bleeding or infection. Left wrist is wrapped in clean bandage as well. Skin Exam: Present: normal color, warm/dry, no cyanosis Lymphatic: Present: no adenopathy Neurologic: Present: outbound call center representative II-XII nml as tested, no motor/sensory deficits, alert, normal mood/affect, oriented x 3 Appearance: Present: appropriate appearance, appropriate insight, neat, no memory impairment Eye contact: Present: cooperative, good eye contact, normal speech Thoughts: Present: normal thought pattern, no apparent hallucination Cauti Physician Documentation - Urinary Catheter Management Urethral (Santacruz) Date of Insertion: 04/21/20 Time of Insertion: 16:30 Date of Removal: 04/23/20 Time of Removal: 05:15 Assessment/Plan Plan Narrative: We will continue to watch the patient for recurrence of fever, antipyretics have been ordered to be administered as needed. Will follow daily hemogram to monitor hemoglobin levels and daily CMP's to continue watching renal function and electrolytes. Patient is comfortable at the moment and denies pain so we will not make any changes to her pain regimen. Placement in a rehab facility is being planned once we have secured a bed for her we will work on her discharge. - Problems/Diagnosis (1) Fracture of femoral neck, left Problem: Resolved (2) Closed fracture distal radius and ulna Problem: Resolved Qualifiers: Encounter type: initial encounter Laterality: left Qualified Code(s): S52.502A - Unspecified fracture of the lower end of left radius, initial encounter for closed fracture; S52.602A - Unspecified fracture of lower end of left ulna, initial encounter for closed fracture (3) S/P triple vessel bypass Problem: Chronic (4) Chronic anemia Problem: Chronic (5) Macrocytic anemia Problem: Chronic (6) Atrial fibrillation Problem: Chronic (7) Status post hip hemiarthroplasty Problem: Acute (8) Postoperative anemia due to acute blood loss Problem: Acute
--- NOTE | 2020-04-23 09:58 | PN ---
Subjective - Date and Time Seen Date: 04/23/20 Time: 07:45 Subjective Narrative: Patient reports no acute events. She notes her pain is well controlled currently. She states she has no significant pain, mild with weightbearing, better with rest. She notes her wrist has no significant impairment. She otherwise notes she is doing well. Objective - Vitals Vitals: Last Vital Signs Temp 37.8 C 04/23/20 08:17 Pulse 106 H 04/23/20 06:17 Resp 16 04/23/20 06:17 BP 118/65 04/23/20 06:17 Pulse Ox 94 04/23/20 06:17 - Abnormal Lab Findings Abnormal Lab Findings: Abnormal Lab Results 04/23/20 04/23/20 Range/Units 06:30 06:30 RBC 2.05 L (4.2-5.4) M/mm3 Hgb 7.4 L* (12.5-16.0) gm/dL Hct 22.7 L* (37.0-47.0) % MCV 110.7 H (78-100) fl MCH 36.1 H (27-31) pg RDW 15.4 H (11.5-14.0) % Potassium 4.7 H (3.4-4.6) mmol/L Carbon Dioxide 23.3 L (24-32.6) mmol/L BUN 25 H (3-23) mg/dL Creatinine 1.55 H (0.4-1.4) mg/dL Est GFR (Non-Af Amer) 33 L (60-130) mL/min Random Glucose 131 H (70-110) mg/dL Calcium 7.6 L (7.9-10.9) mg/dL - Exam Constitutional: Present: Alert, Cooperative, No distress Respiratory: Present: no respiratory distress Extremity: Present: other - LUE--> incision intact light touch, diffuse mild edema and ecchymosis, capillary refill brisk, splint in place, dressings clean/dry/intact, plant specialist strength 4+/5 LLE--> bandages clean/dry/intact, sensation intact light touch, distal capillary refill brisk, 5/5 plantar flexion dorsiflexion ankle diffuse mild tenderness about left hip Appearance: Present: appropriate appearance Eye contact: Present: cooperative Cauti Physician Documentation - Urinary Catheter Management Urethral ([place]ruz) Date of Insertion: 04/21/20 Time of Insertion: 16:30 Date of Removal: 04/23/20 Time of Removal: 05:15 Assessment/Plan Plan Narrative: -89-year-old female postop day 1 status post open reduction internal fixation of left distal radius/ulna fracture and left hemiarthroplasty for femoral neck fracture -PT/OT progress as tolerated, limited weightbearing on left wrist -Weightbearing as tolerated left lower extremity, anterior precautions, assistive device as needed -P.o. diet as tolerated -P.o. pain medication PRN -DVT prophylaxis Lovenox, SCDs in bed, MERRICK hose knee-high -Chronic medical conditions per medicine -Maintain postoperative dressings in place -Disposition: COVID testing pending for placement to SNF, continue to progress with goals for PT/OT, chronic medical conditions per medicine team, once all goals are met and patient is safe for discharge will proceed to a SNF - Problems/Diagnosis (1) Closed fracture distal radius and ulna Problem: Resolved Qualifiers: Encounter type: initial encounter Laterality: left Qualified Code(s): S52.502A - Unspecified fracture of the lower end of left radius, initial encou nter for closed fracture; S52.602A - Unspecified fracture of lower end of left ulna, initial encounter for closed fracture (2) Fracture of femoral neck, left Problem: Resolved
[2020-04-23] MEDS: ENOXAPARIN SODIUM 40 MG/0.4 ML SYRG SC SCH (11:07)
[2020-04-23] MEDS: PANTOPRAZOLE SODIUM 40 MG in NORMAL SALINE 100 ML IV SCH (19:50)
[2020-04-23] MEDS: SENNOSIDES/DOCUSATE SODIUM 1 TAB TABLET PO SCH (20:08)
[2020-04-24] MEDS: HYDROcodone/ACETAMINOPHEN 1 EACH TABLET PO PRN ×2 (00:43→12:10)
[2020-04-24 07:06] LABS: Anion Gap 10.7 mmol/L (6.8-13.8); BUN/Creatinine Ratio 20.1 (9.0-21.6); Calcium * 7.6 mg/dL (7.9-10.9); Estimated Creat Clear 25.7; Potassium 4.7 mmol/L (3.4-4.6)
[2020-04-24 07:11] LABS: Mean Cell Volume 110.2 fl (78-100); Mean Corpuscular Hemoglobin 34.9 pg (27-31); Mean Corpuscular Hgb Conc 31.7 g/dl (32-36); Mean Platelet Volume 10.7 fl (8-12.5); Platelet Count 134 K/mm3 (150-450); Red Blood Count 1.86 M/mm3 (4.2-5.4); Red Cell Distribution Width 15.3 % (11.5-14.0); White Blood Count 4.5 K/mm3 (4.0-10.5)
[2020-04-24 07:36] LABS: Hematocrit 20.5 % (37.0-47.0); Hemoglobin 6.5 gm/dL (12.5-16.0)
--- NOTE | 2020-04-24 07:38 | PN ---
Galdino Note - Interim Date: 04/24/20 Time: 07:32 Narrative: 04/24/20 07:32 Patient presents with mild soreness however she notes she has no pain. She is up work with physical therapy upon presentation. She appears to be in no significant acute distress. She reports no other acute concerns or events. Exam left upper extremity sensation intact light touch, turn supervisor 4+/5, postoperative dressings and splint in place clean/dry/intact. Left lower extremity, dressings clean/dry/intact, diffuse mild tenderness palpation of left hip, diffuse mild decrease and strength and range of motion, sensation intact light touch, distal capillary refill brisk. Patient will follow up with 2 weeks postop with the orthopedic outpatient clinic. Continue with following recommendations: -Left upper extremity maintain postoperative dressings in place, minimal weightbearing -Left lower extremity weightbearing as tolerated, assistive device PRN, anterior precautions -PT/OT progress as tolerated -P.o. pain medication PRN -P.o. diet as tolerated -DVT prophylaxis: JimmiexMERRICK knee-high -Chronic medical conditions per medicine, note patient has a hemoglobin below 7, medicine physician can determine if they believe transfusion is required, patient appeared asymptomatic this morning on exam however this needs to be monitored, patient become symptomatic would recommend transfusing -Follow-up at orthopedic outpatient clinic at 2 weeks postop -Change dressing of left hip every 3 days or as needed, maintain left wrist dressing in place until follow-up with orthopedic -Disposition: care home facility, chronic medical conditions per medicine team, call orthopedic outpatient clinic for any acute questions or concerns, follow-up in 2 weeks
[2020-04-24] MEDS ORDERED: FUROSEMIDE 80 MG TABLET PO PRN (09:07)
[2020-04-24] MEDS ORDERED: POTASSIUM CHLORIDE 10 MEQ TABLET.SA PO SCH (09:15)
[2020-04-24] MEDS ORDERED: FOLIC ACID 1 MG TABLET PO SCH (09:15)
[2020-04-24] MEDS ORDERED: FUROSEMIDE 10 MG/ML VIAL IV SCH (09:15)
[2020-04-24] MEDS ORDERED: AMIODARONE HCL 200 MG TABLET PO SCH (09:15)
[2020-04-24] MEDS ORDERED: CARVEDILOL 12.5 MG TABLET PO SCH (09:15)
[2020-04-24] MEDS ORDERED: ANASTROZOLE 1 MG TABLET PO SCH (09:15)
--- NOTE | 2020-04-24 09:22 | DS ---
(1) Fracture of femoral neck, left Problem: Resolved (2) Closed fracture distal radius and ulna Problem: Resolved Qualifiers: Encounter type: initial encounter Laterality: left Qualified Code(s): S52.502A - Unspecified fracture of the lower end of left radius, initial encounter for closed fracture; S52.602A - Unspecified fracture of lower end of left ulna, initial encounter for closed fracture (3) S/P triple vessel bypass Problem: Chronic (4) Chronic anemia Problem: Chronic (5) Macrocytic anemia Problem: Chronic (6) Atrial fibrillation Problem: Chronic (7) Status post hip hemiarthroplasty Problem: Acute (8) Postoperative anemia due to acute blood loss Problem: Acute Date of Discharge:: 04/24/20 Hospital Course: 89-year-old female admitted for a left femoral neck and left wrist fracture from a fall that occurred in her home on Wednesday was evaluated at bedside was found to be afebrile and in no acute distress this morning. Patient appears comfortable at the moment and denies any new concerns, however labs this morning demonstrated hemoglobin under 7 and given the patient's cardiac history we have decided to transfuse 1 PRBC before discharging her. Discharge is planned for later today to a rehab facility where the patient will undergo rehabilitation while healing from her surgery. We will reevaluate her after the transfusion is done in order to reevaluate hemoglobin levels. Procedures Performed: see notes below List Procedures: Right hemiarthroplasty. Results and Findings: Lab Pending Results 04/21/20 14:30: WBC 4.3, RBC 2.46 L, Hgb 8.7 L, Hct 26.2 L, MCV 106.5 H, MCH 35.4 H, MCHC 33.2, RDW 15.0 H, Plt Count 202, MPV 9.5, Immature Gran % (Auto) 0.50 H, Immature Gran # (Auto) 0.02, Neutrophils % 67.3, Lymphocytes % 19.5 L, Monocytes % 10.1 H, Eosinophils % 1.9, Basophils % 0.7, Nucleated RBC % 0.0, Neutrophils # 2.9, Lymphocytes # 0.83 L, Monocytes # 0.4, Eosinophils # 0.1, Absolute Basophils 0.0 04/21/20 14:30: Sodium 134, Plasma Sodium 134, Potassium 4.6, Chloride 101, Carbon Dioxide 25.0, Anion Gap 12.6, BUN 32 H, Creatinine 1.73 H, Est GFR (Non- Af Amer) 29 L, BUN/Creatinine Ratio 18.5, Random Glucose 124 H, Calcium 8.6, Calcium Adj for Albumin 8.7, Total Bilirubin 0.7, AST 17, ALT 13 L, Alkaline Phosphatase 62, Total Protein 6.4, Albumin 3.5 04/21/20 14:30: Blood Type A Positive, Antibody Screen Negative, Crossmatch See Detail 04/21/20 14:30: PT 12.2 H, INR (Anticoag Therapy) 1.24 H, PTT (Denise) 29.2 04/21/20 16:15: Urine Color Yellow, Urine Appearance Clear, Urine pH 7.0, Ur Specific [place] 1.020, Urine Protein Negative, Urine Glucose (UA) Negative, Urine Ketones Negative, Urine Blood Negative, Urine Nitrate Negative, Urine Bilirubin Negative, Urine Urobilinogen 2.0 H, Ur Leukocyte Esterase Negative, Urine RBC None seen, Urine WBC None seen, Ur Epithelial Cells 0-5, Urine Bacteria None seen, Urine Culture Comments No culture indicated 04/22/20 12:26: Pathology Specimen Spec to path 04/22/20 14:06: SARS-CoV-2 (PCR) Not detected 04/23/20 06:30: WBC 5.8 D, RBC 2.05 L, Hgb 7.4 L*, Hct 22.7 L*, MCV 110.7 H, MCH 36.1 H, MCHC 32.6, RDW 15.4 H, Plt Count 152, MPV 10.1 04/23/20 06:30: Sodium 134, Plasma Sodium 134, Potassium 4.7 H, Chloride 104, Carbon Dioxide 23.3 L, Anion Gap 11.4, BUN 25 H, Creatinine 1.55 H, Est GFR (Non-Af Amer) 33 L, BUN/Creatinine Ratio 16.1, Random Glucose 131 H, Calcium 7.6 L 04/24/20 06:40: WBC 4.5 D, RBC 1.86 L, Hgb 6.5 L*, Hct 20.5 L*, MCV 110.2 H, MCH 34.9 H, MCHC 31.7 L, RDW 15.3 H, Plt Count 134 L, MPV 10.7 04/24/20 06:40: Sodium 134, Plasma Sodium 134, Potassium 4.7 H, Chloride 104, Carbon Dioxide 24.0, Anion Gap 10.7, BUN 28 H, Creatinine 1.39, Est GFR (Non-Af Amer) 38 L, BUN/Creatinine Ratio 20.1, Random Glucose 111 H, Calcium 7.6 L Discharge Location: Other - [facility] Disposition: SNF Condition: Stable Level of Care: SNF Discharge Activity: Weight bearing Discharge Diet: General/regular food Usp Therapy: Physical Therapy, Occupation Therapy Additional Patient Instructions (free text): [facility] SNF- PT/OT. Follow up Dr Pineda Orthopedics appointment on WednesdayMay 06 at 1:30pm. Orthopedics recommendations: -Left upper extremity maintain postoperative dressings in place, minimal weightbearing -Left lower extremity weightbearing as tolerated, assistive device PRN, anterior precautions -PT/OT progress as tolerated -P.o. pain medication PRN -P.o. diet as tolerated -DVT prophylaxis: MERRICK Gray knee-high -Follow-up at orthopedic outpatient clinic at 2 weeks postop on WednesdayMay 06 at 1:30pm. -Change dressing of left hip every 3 days or as needed, maintain left wrist dressing in place until follow-up with orthopedic -Call orthopedic outpatient clinic for any acute questions or concerns Prescriptions (Any new or edited meds): Furosemide [Lasix] 40 mg PO BID #60 tablet Enoxaparin Sodium [Lovenox] 40 mg SQ DAILY 43 Days #43 ml HYDROcodone/ACETAMINOPHEN [[place] 5-325] 1 ea PO Q6H PRN #40 tab PRN Reason: Moderate Pain (Pain Scale 4-6) Transmission Status: Received by Melissa Complete Home Medications List: Complete Home Medication List: Amiodarone HCl 200 mg PO DAILY 04/22/20 Anastrozole [Arimidex] 1 mg PO DAILY 04/22/20 Carvedilol [Coreg] 12.5 mg PO BID 04/22/20 Folic Acid 2 mg PO DAILY 04/22/20 Potassium Chloride [K-Tab ER] 10 meq PO DAILY 04/22/20 Enoxaparin Sodium [Lovenox] 40 mg SQ DAILY 43 Days #43 ml 04/24/20 Furosemide [Lasix] 40 mg PO BID #60 tablet 04/24/20 HYDROcodone/ACETAMINOPHEN [[place] 5-325] 1 ea PO Q6H PRN #40 tab 04/24/20 Sennosides/Docusate Sodium [Senokot-S] 2 tab PO HS tablet 04/24/20 Forms: Patient Portal Registration
[2020-04-24] MEDS: ENOXAPARIN SODIUM 40 MG/0.4 ML SYRG SC SCH (12:11)
[2020-04-24 12:36] LABS: Hematocrit 26.6 % (37.0-47.0); Hemoglobin 8.6 gm/dL (12.5-16.0); Mean Cell Volume 106.4 fl (78-100); Mean Corpuscular Hemoglobin 34.4 pg (27-31); Mean Corpuscular Hgb Conc 32.3 g/dl (32-36); Mean Platelet Volume 9.4 fl (8-12.5); Neutrophil # 4.5 K/mm3 (1.3-6.0); Neutrophil % 74.4 % (42-75.0); Platelet Count 157 K/mm3 (150-450); Red Cell Distribution Width 17.5 % (11.5-14.0); White Blood Count 6.1 K/mm3 (4.0-10.5)
[2020-04-24 12:47] VITALS: BP 145/56
== END 2020-04-24 13:20 | DRG 470 ==
LOC: ER 14:06 → MS 17:04
PROVIDERS: ADMIT Family Medicine; ATTEND Family Medicine
DX: W01.0XXA Fall on same level from slipping, tripping and stumbling without subsequent striking against object, initial encounter; D53.9 Nutritional anemia, unspecified; Z95.1 Presence of aortocoronary bypass graft; S72.002A Fracture of unspecified part of neck of left femur, initial encounter for closed fracture; D62 Acute posthemorrhagic anemia; I48.20 Chronic atrial fibrillation, unspecified; I25.10 Atherosclerotic heart disease of native coronary artery without angina pectoris; S52.552A Other extraarticular fracture of lower end of left radius, initial encounter for closed fracture
CPT/HCPCS: 36415; 71010; 71045; 73110; 73502; 80048; 80053; 81001; 85025; 85027; 85610; 85730; 86850; 88305; 88311; 88888; 93005; 96374; 96375; 96376; 97110; 97116; 97161; 97165; 97535; 99284; 99285; C9803; J2405; P9016; U0001